=== PATIENT | female | born 1960 | race Caucasian/White ===

== ENCOUNTER 2020-06-05 13:23 | Emergency (ER) | payer OTHER ==
[~2020-06-05] VITALS: Ht 157.5 cm; Wt 82.6 kg
[~2020-06-05 13:23] MED LIST: ALBUTEROL SULF8.5 GM; CARISOPRODOL350 MG PO; FERRALET 90 DU1 EACH; LAMOTRIGINE100 MG PO; METFORMIN HCL500 M1 PO; PREMARIN0.3 MG PO; VYVANSE40 MG PO; XANAX2 MG PO; ZESTRIL20 MG PO
== END 2020-06-05 14:35 | disposition home or self-care (01) ==
LOC: ER 13:31
DX: R10.33 Periumbilical pain (principal); I10 Essential (primary) hypertension; F31.9 Bipolar disorder, unspecified; F98.8 Other specified behavioral and emotional disorders with onset usually occurring in childhood and adolescence
CPT/HCPCS: 74176; 99283